=== PATIENT | male | born 1985 | race Caucasian/White ===

== ENCOUNTER 2018-11-27 01:42 | Emergency (ER) | payer SELFPAY ==
[~2018-11-27] VITALS: Ht 167.6 cm; Wt 72.6 kg
[2018-11-27 01:55] VITALS: Ht 167.6 cm; Wt 72.6 kg
[2018-11-27 03:28] VITALS: BP 154/94
== END 2018-11-27 03:28 | disposition other institution (70) ==
LOC: ED 01:42
DX: S61.511A Laceration without foreign body of right wrist, initial encounter (principal); S63.501A Unspecified sprain of right wrist, initial encounter; Z98.890 Other specified postprocedural states; Z90.89 Acquired absence of other organs; W45.8XXA Other foreign body or object entering through skin, initial encounter; Y93.89 Activity, other specified; Y92.89 Other specified places as the place of occurrence of the external cause; Y99.0 Civilian activity done for income or pay

== ENCOUNTER 2018-11-27 01:42 | Emergency (ER) | payer OTHER | END 2018-11-27 03:28 | disposition other institution (70) | LOC: ED 01:42 | DX: Z02.89 Encounter for other administrative examinations (principal) ==